=== PATIENT | female | born 2000 | race Caucasian/White ===

== ENCOUNTER 2023-04-24 09:20 | Outpatient (CLI) | payer OTHER, SELFPAY ==
[2023-04-24 09:53] LABS: Glucose Fasting Gestational 83 mg/dL (>/=95)
[2023-04-24 11:48] LABS: Glucose 1 Hour Gest 125 mg/dL (>/=180)
[2023-04-24 13:34] LABS: Glucose 3 Hour Gest 111 mg/dL (>/=140)
[2023-04-27 09:01] LABS: Glucose 2 Hour Gest 131 mg/dL (>/= 155)
== END 2023-04-24 09:21 | disposition home or self-care (01) ==
LOC: ANHLAB 09:21
PROVIDERS: Visit Provider Student in an Organized Health Care Education/Training Program
DX: Z34.90 Encounter for supervision of normal pregnancy, unspecified, unspecified trimester (principal); Z3A.00 Weeks of gestation of pregnancy not specified
CPT/HCPCS: 36415; 82951; 82952

== ENCOUNTER 2023-05-21 03:32 | Inpatient (IN) | payer OTHER, SELFPAY ==
[2023-05-21] VITALS (90 sets, daily range): BP systolic 92–141; BP diastolic 49–99; PULSE 84–151; RESP 16–18; TEMP 36.4–37.1; O2SAT 91–100; BMI 27.6
[2023-05-21] MEDS: AMPICILLIN 2 GM/NS 100 ML 2 GM/100 ML BAG IVPB (04:30)
[2023-05-21] MEDS: LACTATED RINGERS 1,000 ML 125 ML IV CONT ×2 (04:30→06:29)
[2023-05-21 05:10] LABS: Basophils Absolute Auto 0.1 K/mm3 (0.0-0.1); Basophils Percent Auto 0.4 % (0.2-1.2); Eosinophils Percent Auto 0.3 % (0-4.4); Hemoglobin 11.8 g/dL (12.0-15.0); Immature Granulocyte Percent A 1.5 % (0-0.5); Lymphocytes Absolute Auto 2.32 K/mm3 (0.9-3.2); Lymphocytes Percent Auto 17.8 % (18.3-44.2); Mean Corpuscular HGB Conc 35.8 g/dl (32-36); Mean Corpuscular Hemoglobin 35.1 pg (26-34); Mean Corpuscular Volume 98.2 fl (80-100); Mean Platelet Volume 10.2 fl (7.4-10.4); Monocytes Percent Auto 7.3 % (2.6-8.5); Neutrophils Absolute Auto 9.4 K/mm3 (1.3-6.7); Neutrophils Percent Auto 72.7 % (45.5-73.1); Platelet Count Result 225 k/mm3 (150-375); Red Blood Count 3.36 M/mm3 (4.2-5.4); Red Cell Distribution Width 12.5 % (11.5-14.5)
--- NOTE | 2023-05-21 05:35 | LDADM ---
This patient, Cleopatra Delaney, was admitted to Labor/Delivery/Recovery 105 on 05/21/23 at 03:32. Plans for labor, pain management and were discussed with patient. Patient/family oriented to hospital policies and general routines including ID bracelet, bed and alarms, visiting hours, pain management, procedures, bathroom and other care routines, personal items, smoking policy, room service/diet and guest tray routines, security routines, and visiting hours. Patient/Family are encouraged to report perceived risks to care and to ask questions if they do not understand what they are told or what they should do. See OBIX for further documentation.
[2023-05-21 06:05] LABS: HIV 1/2 Ab P24 Ag Result Negative (Negative)
--- NOTE | 2023-05-21 06:39 | WPDANESEPP ---
Anes - Eval Pre Procedure Procedure: Labor epidural Date/Time: 05/21/23 06:39 Surgeon: Na Preop Diagnosis: Abdominal pain with contractions Pre Op Diagnosis: IOL Patient Data Age: 22 Gender: F Height: Weight: Last Vital Signs Pulse 97 05/21/23 06:36 BP 117/64 05/21/23 06:36 Pulse Ox 97 05/21/23 06:34 Allergies Allergy/AdvReac Type Severity Reaction Status Date / Time No Known Allergies Allergy Verified 05/19/23 08:54 Home Medications Medication Instructions Recorded Confirmed Type docusate sodium 100 mg capsule 100 mg PO DAILY 04/16/23 05/19/23 History (Colace) ferrous sulfate 325 mg (65 mg 325 mg PO DAILY 04/16/23 05/19/23 History iron) tablet (FeroSul) vitamin#30 30 mg iron-10 1 cap PO DAILY 04/16/23 05/19/23 History mg iron-folic acid 1 mg-omg3 capsule Laboratory Tests 05/21/23 04:29 WBC 13.0 H K/mm3 (4.5-10.0) RBC 3.36 L M/mm3 (4.2-5.4) Hgb 11.8 L g/dL (12.0-15.0) Hct 33.0 L % (37.0-47.0) MCV 98.2 fl (80-100) MCH 35.1 H pg (26-34) MCHC 35.8 g/dl (32-36) RDW 12.5 % (11.5-14.5) Plt Count 225 k/mm3 (150-375) MPV 10.2 fl (7.4-10.4) Immature Gran % (Auto) 1.5 H % (0-0.5) Neut % (Auto) 72.7 % (45.5-73.1) Lymph % (Auto) 17.8 L % (18.3-44.2) [place] % (Auto) 7.3 % (2.6-8.5) Eos % (Auto) 0.3 % (0-4.4) Baso % (Auto) 0.4 % (0.2-1.2) Lymph # (Auto) 2.32 K/mm3 (0.9-3.2) [place] # (Auto) 1.0 H K/mm3 (0.1-0.6) Eos # (Auto) 0.0 K/mm3 (0-0.3) Baso # (Auto) 0.1 K/mm3 (0.0-0.1) Abs Immat Gran (auto) 0.20 H K/mm3 (0.00-0.031) Absolute Neuts (auto) 9.4 H K/mm3 (1.3-6.7) Absolute Nucleated RBC 0.0 K/mm3 (0.0-0.012) Nucleated RBC % 0.0 % (0.0-0.2) RPR Pending HIV 1&2 Ab/P24 Ag 4thGn Negative (Negative) Blood Type A Positive Antibody Screen Pending : gestational age HCG: positive Patient hx anesthesia problems: none Family hx anesthesia problems: none Results Review: All pre-operative results and documents have been reviewed as part of the pre-operative evaluation. [facility] Past Medical History Medical History (Updated 05/21/23 @ 06:41 by Kory Lea CRNA) Anemia Surgical History Surgical History History of tonsillectomy Family History Family History Mother Endometriosis Familial hemochromatosis Grandparent Heart disease Cerebrovascular accident Breast cancer Social History Social History Smoking status: Never smoker Tobacco type: e-cigarettes/vaping Alcohol intake: current Alcohol use details: not while Substance use: never Lack of Transportation: No Lack of Food: Never True Current Housing: I Have Housing Concerned About Future Housing: No Difficulty Paying Gas/Electric Bills: No Difficulty Paying for Meds: No Currently Unemployed: No Education: Bachelor's Degree Difficulty w/ Childcare or Family Care: No Living arrangements: with family Occupation/Education: occupation Gender identity (if verbalized by the patient): Female Spiritual care concerns: No Exam Day of Procedure 05/21/23 06:39 Patient weight: normal Airway: Mallampati scale class II
--- NOTE | 2023-05-21 07:14 | PM.IMHP ---
H&P: HPI History of Present Illness Date/Time: 05/21/23 07:14 Chief Complaint: contractions Narrative: Cleopatra is a 22yo @ 40.4wks who presented early this morning to L&D with painful and regular contractions; she was scheduled for induction of labor tonight. She made change from 4 to 6cm. She has had regular care. She is s/p epidural and now comfortable. Her is complicated by: - Elevated 1 hour; normal 3 hour - GBS positive Review of Systems Constitutional: Constitutional: Denies chills, Denies fever(s) and Denies headache(s) Eyes: Eyes: Denies change in vision ENT: Denies headache(s) Cardiovascular: Cardiovascular: Denies chest pain and Denies dyspnea Respiratory: Respiratory: Denies dyspnea Genitourinary: Genitourinary: Denies abnormal vaginal bleeding and Denies vaginal discharge Neurologic: Denies headache(s) Psychiatric: Psychiatric: Denies anxiety and Denies depression [facility] Past Medical History Medical History (Updated 05/21/23 @ 07:18 by Dai Ugarte MD) Anemia Surgical History Surgical History History of tonsillectomy Family History Family History Mother Endometriosis Familial hemochromatosis Grandparent Heart disease Cerebrovascular accident Breast cancer Social History Social History Smoking status: Never smoker Tobacco type: e-cigarettes/vaping Alcohol intake: current Alcohol use details: not while Substance use: never Lack of Transportation: No Lack of Food: Never True Current Housing: I Have Housing Concerned About Future Housing: No Difficulty Paying Gas/Electric Bills: No Difficulty Paying for Meds: No Currently Unemployed: No Education: Bachelor's Degree Difficulty w/ Childcare or Family Care: No Living arrangements: with family Occupation/Education: occupation Gender identity (if verbalized by the patient): Female Spiritual care concerns: No Meds Home Medications and Allergies Home Medications Medication Instructions Recorded Confirmed Type docusate sodium 100 mg capsule 100 mg PO DAILY 04/16/23 05/19/23 History (Colace) ferrous sulfate 325 mg (65 mg 325 mg PO DAILY 04/16/23 05/19/23 History iron) tablet (FeroSul) vitamin#30 30 mg iron-10 1 cap PO DAILY 04/16/23 05/19/23 History mg iron-folic acid 1 mg-omg3 capsule Allergies Allergy/AdvReac Type Severity Reaction Status Date / Time No Known Allergies Allergy Verified 05/19/23 08:54 Vital Signs Vital Signs - 24 hr 05/21/23 03:52 05/21/23 04:01 05/21/23 04:16 Temperature Pulse Rate 150 H 105 H 96 Respiratory Rate Blood Pressure 123/81 140/88 126/64 Pulse Oximetry 05/21/23 04:30 05/21/23 04:45 05/21/23 05:01 Temperature Pulse Rate 91 112 H 104 H Respiratory Rate Blood Pressure 119/67 139/71 121/66 Pulse Oximetry 05/21/23 05:15 05/21/23 05:46 05/21/23 06:10 Temperature Pulse Rate 111 H 107 H Respiratory Rate Blood Pressure 121/79 139/78 Pulse Oximetry 95 05/21/23 06:11 05/21/23 06:15 05/21/23 06:18 Temperature Pulse Rate 107 H 112 H Respiratory Rate Blood Pressure 135/66 130/83 Pulse Oximetry 96 05/21/23 06:20 05/21/23 06:24 05/21/23 06:26 Temperature Pulse Rate 106 H Respiratory Rate Blood Pressure 122/54 L Pulse Oximetry 96 96 05/21/23 06:27 05/21/23 06:28 05/21/23 06:29 Temperature Pulse Rate 97 107 H Respiratory Rate Blood Pressure 121/64 110/63 Pulse Oximetry 96 05/21/23 06:30 05/21/23 06:32 05/21/23 06:34 Temperature Pulse Rate 130 H 121 H Respiratory Rate Blood Pressure 100/54 L 117/67 Pulse Oximetry 97 05/21/23 06:35 05/21/23 06:36 05/21/23 06:39 Temperature Pulse Rate 103 H 97 86 Respir
--- NOTE | 2023-05-21 07:19 | WPDHPUPDATE1 ---
History and Physical Update Update Date/Time: 05/21/23 07:19 History and Physical has been reviewed, including an updated exam of the patient. There are NO changes in the patient's condition. Risks, benefits, and alternatives have been discussed and questions answered. Patient agrees to proceed with procedure.
[2023-05-21] MEDS: SODIUM CHLORIDE 0.9% IV 300 ML 600 ML I-UTERINE (07:55)
[2023-05-21] MEDS: AMPICILLIN 1 GM/NS 50 ML 1 GM/50 ML BAG IVPB (08:45)
[2023-05-21] MEDS: ACETAMINOPHEN 500 MG TABLET 1000 MG (10:35)
--- NOTE | 2023-05-21 10:46 | PM.OBPRVD ---
OB - Delivery Note Procedure Delivery date: 05/21/23 Events: Positive Group B Strep (GBS) Intrapartal Events: Decelerations Delivery augmentation: Rupture of Membranes Delivery monitor: External FHT and Internal Uterine Route of delivery: Laceration Description: Periurethral (bilateral) Delivery repair: vicryl Specimen: No Quantitative Blood Loss (ml): 300 Anesthesia type: Epidural Disposition: Floor [place] Baby Date of : 05/21/23 Time of : 10:17 Weeks of gestation at delivery: 40 (.4) Infant gender: Male Weight (pounds): 8 Weight (ounces): 4 presentation: vertex Placenta delivery description: Spontaneous Cord Vessel Description: 3 Vessels, Nuchal Cord, Loose and Delayed Cord Clamping score one minute: 8 score five minutes: 9 Narrative: Cleopatra rapidly progressed to complete dilation and deep variables were noted. Intrauterine resuscitation was performed and baby responded well when mom was placed on her right side. She pushed for approximately 30 minutes with good maternal effort. She delivered the head over intact perineum. Nuchal cord was noted but loose. She easily delivered the 's shoulders and body without complication. He was immediately placed skin to skin and stimulated by the pediatric nurses. His mouth and nose were bulb suction and cry was heard. Delayed cord clamping was performed. The umbilical cord was then doubly clamped and cut. A segment of the cord was collected for cord gases. The remaining cord blood was collected for typing. With Pitocin running and gentle downward traction on the cord, the placenta delivered without complications. Bimanual massage was performed and good uterine tone was noted. She was examined and bilateral periurethral lacerations were noted and repaired in the normal fashion using 3-0 Vicryl. Good uterine tone and minimal bleeding remained. Sponge, lap, instrument, and needle counts were correct at the end the procedure. Mom and baby were left bonding in the birthing suite in stable condition. [facility] Delivery Billing Delivery Delivery: Delivery Charge
[2023-05-21] MEDS: OXYTOCIN 30 UNITS/NS 500 ML 30 UNITS/500 ML BAG 125 UNITS IV CONT (11:15)
[2023-05-21] MEDS: BENZOCAINE 20% AER SPR (*SP) 56 GM CAN 1 SPRAY TOPICAL (13:10)
[2023-05-21] MEDS: WITCH HAZEL 40 PADS 1 PAD TOPICAL (13:10)
--- NOTE | 2023-05-21 13:12 | PC.NURSE ---
Patient transferred to post room #286 via wheel chair. Support person present. Oriented to unit, room, information board, rooming in, admission packet and security measures. Patient verbalizes understanding.
[2023-05-21 17:04] LABS: Rapid Plasma Reagin Non-Reactive (NonReactive)
[2023-05-21] MEDS: ACETAMINOPHEN 325 MG TABLET 650 MG PO (18:38)
[2023-05-21] MEDS: IBUPROFEN 600 MG TABLET PO (21:52)
[2023-05-22 04:15] VITALS: BP 107/62; PULSE 89; RESP 18; TEMP 36.8; O2SAT 98
[2023-05-22 04:40] LABS: Hemoglobin 10.8 g/dL (12.0-15.0)
[2023-05-22 08:15] VITALS: BP 109/63; PULSE 92; RESP 18; TEMP 36.9; O2SAT 99
[2023-05-22] MEDS: DOCUSATE SODIUM 100 MG CAPSULE PO (10:04)
[2023-05-22] MEDS: MULTIVIT/MIN/PREN/FOL AC/IRON TABLET 1 TAB PO (10:04)
[2023-05-22] MEDS: IBUPROFEN 600 MG TABLET PO (10:04)
--- NOTE | 2023-05-22 12:21 | WPDANLDPN2 ---
Anes-Prog Note L&D Date/Time: 05/22/23 12:21 Neuro status: Neuro function grossly intact. Cardiovascular status: normal Respiratory status: normal Airway patency: baseline Mental status: baseline Post-Op hydration status: normal Vital Signs: Last Vital Signs Temp 36.9 C 05/22/23 08:15 Pulse 92 05/22/23 08:15 Resp 18 05/22/23 08:15 BP 109/63 05/22/23 08:15 Pulse Ox 99 05/22/23 08:15 O2 Del Method Room Air 05/21/23 21:10 Pain score (VAS): 0 I/O: Intake & Output 05/21/23 05/22/23 05/22/23 23:59 07:59 15:59 Intake Total 500 Balance 500 Post-procedural complaints: none Patient feedback: Patient satisfied with anesthetic care.
--- NOTE | 2023-05-22 12:33 | PM.OBPNVD ---
OB - PN: Subj Subjective Date/time seen: 05/22/23 12:33 Narrative: PPD#1 Cleopatra reports doing well today. Her bleeding is conference translator. Her pain is controlled. She is tolerating regular diet, voiding, passing gas, and ambulating without issues. She is breast feeding. She would like her son circumcised. OB - PN: Obj Data Labs 05/22/23 04:22 Labs: Laboratory Results - last 24 hr 05/21/23 05/22/23 04:29 04:22 Hgb 10.8 L Hct 36.0 L RPR Non-reactive OB - PN A/P Assessment and Plan (1) Normal vaginal delivery of first : Code(s): O80 - Encounter for full-term uncomplicated delivery Status: Acute Plan day: 1 Plan: routine care Comments: - circ performed w/o issue - continue breast feeding q2-3hr Time Spent With Patient Time: Total time spent is greater than 50% in coordination of care (as documented) at patient's floor/unit and/or counseling patient: Review of Systems Constitutional: Constitutional: Denies chills, Denies fever(s) and Denies headache(s) Eyes: Eyes: Denies change in vision ENT: Denies dizziness and Denies headache(s) Cardiovascular: Cardiovascular: Denies chest pain, Denies palpitations and Denies dyspnea Respiratory: Respiratory: Denies cough and Denies dyspnea Gastrointestinal: Gastrointestinal: Denies nausea and Denies vomiting Neurologic: Denies dizziness and Denies headache(s) Endocrine: Endocrine: Denies palpitations Exam Const: General: cooperative, comfortable and no acute distress Orientation/consciousness: patient oriented x3 Resp: Effort & Inspection: normal respiratory effort Auscultation: clear to auscultation bilaterally Cardio: Rate: regular rate GI: Inspection: non-distended GI Palp: No abdominal tenderness and Yes Soft to palpation Auscultation: normal bowel sounds : Other: fundus firm Skin: General skin exam: normal color Neuro: General: patient oriented x3 Extrem: General: normal to inspection Psych: Appearance: grossly normal Affect: normal affect Attitude: cooperative
--- NOTE | 2023-05-22 14:13 | PC.NURSE ---
[id number] Consulted with patient to assess needs related to . Mother led conversation with her experience with feeding baby so far. Mother works well with her with encouragement. Reviewed working with , supporting breast and how to protect the nipples with an optimal deep latch, good positioning, and good hand washing. Encouraged understanding the benefits of skin to skin, responding to feeding cues, frequencies of feeding 8-12 times in 24 hours (approximately 2-3 hours), duration of feedings, milk production, intake/output feeding sheet and signs of adequate intake encouraging swallowing at the breast. Reviewed positioning and alignment, supporting breast, off-centered (asymmetrical latch) and leading with the chin with big, open, wide gape. latched optimally to the right breast in football position. Education given to mother of how to visualize suck/swallow ratios and listen for drinking at the breast. Infant was able to maintain latch without discomfort to mother. Nipple care reviewed with optimal latch, good positioning and using clean hands when feeding her and touching her breast. Resources used to facilitate learning were used from the tool, mom and baby guide. Mother voiced understanding of the education shared, to call for assistance if the does not latch or if there is discomfort with . Reported to the primary RN.
[2023-05-22 17:15] VITALS: BP 107/58; PULSE 91; PULSE 92; RESP 16; RESP 18; TEMP 36.8; O2SAT 98; O2SAT 99
[2023-05-22 19:55] VITALS: BP 114/60; PULSE 79; RESP 18; TEMP 37.1
[2023-05-23] MEDS: IBUPROFEN 600 MG TABLET PO (02:08)
[2023-05-23] MEDS: ACETAMINOPHEN 325 MG TABLET 650 MG PO ×2 (02:09→07:43)
[2023-05-23 07:30] VITALS: BP 111/77; PULSE 78; RESP 18; TEMP 37.2; O2SAT 99
[2023-05-23] MEDS: MULTIVIT/MIN/PREN/FOL AC/IRON TABLET 1 TAB PO (07:46)
[2023-05-23] MEDS: DOCUSATE SODIUM 100 MG CAPSULE PO (07:46)
--- NOTE | 2023-05-23 08:50 | P.DS_ITS ---
DS: Admitting Diagnosis Discharge Date 05/23/23 Admitting Diagnosis Active labor at term DS: Discharge Diagnosis Discharge Diagnosis (1) Normal vaginal delivery of first : Code(s): O80 - Encounter for full-term uncomplicated delivery Status: Acute OB - DS: Summary OB Procedures : Ultrasound OB Procedures Intrapartum: Spontaneous Vag Delivery OB Procedures: : None Peripartum Data Delivery Method: Natural Vaginal Laceration Description: Periurethral complications: none 1: Gender: Male Disposition of : home Status at Discharge Functional status at discharge: independent ambulation Overall status at discharge: patient is back to baseline Time Spent with Patient Time attestation: Total time spent providing and/or coordinating discharge services: Time spent: Less than 30 minutes Exam Const: General: cooperative, healthy appearing, comfortable and no acute distress Orientation/consciousness: patient oriented x3 Resp: Effort & Inspection: normal respiratory effort Auscultation: clear to auscultation bilaterally Cardio: Rate: regular rate GI: Inspection: non-distended GI Palp: No abdominal tenderness and Yes Soft to palpation Auscultation: normal bowel sounds : Other: fundus firm Skin: General skin exam: normal color Neuro: General: patient oriented x3 Extrem: General: normal to inspection Psych: Appearance: grossly normal Affect: normal affect Attitude: cooperative Discharge Plan Discharge Attending physician on discharge: Dai Ugarte Discharging Clinician: Dai Ugarte Anticipated Discharge Date/Time: 05/23/23 12:00 Patient Disposition: Home, Self-Care Activity: may shower and pelvic rest Diet: regular Patient Instructions: Antibiotic Form Stand Alone Forms: General Discharge Information Follow-up/Referrals: Dai Ugarte MD [Physician] - 4 Weeks Discharge Medications: New acetaminophen [Mapap (acetaminophen)] 325 mg Tablet 650 mg PO Q6H PRN (Reason: Mild Pain (1-3) Or Headache) Qty: 60 0RF ibuprofen 600 mg Tablet 600 mg PO Q6H PRN (Reason: Cramping) Qty: 40 0RF Continued ferrous sulfate [FeroSul] 325 mg (65 mg iron) tablet 325 mg PO DAILY PNV #[id number] 30 mg iron-10 mg iron-1 mg capsule 1 cap PO DAILY docusate sodium [Colace] 100 mg capsule 100 mg PO DAILY Date of admission: 05/21/23 03:32 Primary Care Provider: PHYSICIAN,RN CLINICAL RESEARCH Admitting Provider: Francis Monzon Attending physician on admission: Francis Monzon Condition: Stable
[2023-05-25 10:05] VITALS: BP 120/72; PULSE 79; RESP 12; TEMP 36.9
== END 2023-05-23 12:50 | disposition home or self-care (01) | DRG 807 ==
LOC: ANHOB2 05-23 12:01 → ANHLDR 05-26 14:02 → ANHOB2 05-26 14:02
PROVIDERS: Admitting Provider Student in an Organized Health Care Education/Training Program; Visit Provider Obstetrics & Gynecology
DX: O99.824 Streptococcus B carrier state complicating childbirth (principal); Z37.0 Single live birth; O99.02 Anemia complicating childbirth; D64.9 Anemia, unspecified; O76 Abnormality in fetal heart rate and rhythm complicating labor and delivery; O71.82 Other specified trauma to perineum and vulva; O69.81X0 Labor and delivery complicated by cord around neck, without compression, not applicable or unspecified; Z3A.40 40 weeks gestation of pregnancy
CPT/HCPCS: 36415; 85014; 85018; 85025; 86592; 86703; 86850; 86900; 86901; A9270; G0432; J0290; J2590; J2795; J7030; J7120

== ENCOUNTER 2023-07-20 13:25 | Outpatient (CLI) | payer OTHER, SELFPAY ==
[2023-07-20 14:53] LABS: Beta HCG Quantitative < 2.39 mIU/ML
== END 2023-07-20 13:26 | disposition home or self-care (01) ==
LOC: ANHLAB 13:26
PROVIDERS: Visit Provider Obstetrics & Gynecology
DX: N92.6 Irregular menstruation, unspecified (principal)
CPT/HCPCS: 36415; 84702